=== PATIENT | female | born 1975 | race Caucasian/White ===

== ENCOUNTER 2017-11-12 18:31 | Emergency (ER) | payer SELFPAY ==
[2017-11-12 18:49] VITALS: BP 127/78; PULSE 124; RESP 16; TEMP 98.7; O2SAT 96
[2017-11-12] MEDS ORDERED: SODIUM CHLOR 0.9% 1000 ML INJ 1,000 ML IV SCH (19:16)
--- NOTE | 2017-11-12 19:22 | PD ---
HPI Chief Complaint: Medical Clearance Time Seen by Provider: 19:12 Travel History International Travel<30 days: No Contact w/Intl Traveler<30days: No Traveled to known affect area: No History of Present Illness HPI This is a 42-year-old female alcoholic who presents requesting help with alcohol detoxification. She reports that she has been a heavy drinker for the past 10 years. On average she is currently drinking approximately 1 pint of vodka a day, most recently drank 3 hours ago. She reports that yesterday she attempted to quit drinking and she was having withdrawal symptoms including anxiety, nausea. She therefore drink today but would like help with quitting alcohol use. Symptoms are moderate, aggravated by alcohol cessation, alleviated by drinking. She reports that 5 months ago she was seen at a detoxification center in [place]. She has no other complaints at this time. [facility] Past Medical History Medical History: Denies Significant Hx Social History Alcohol Use: Yes Tobacco Use: Yes Allergies-Medications (Allergen,Severity, Reaction): Coded Allergies: No Known Allergies (Unverified , 11/12/17) Reported Meds & Prescriptions Reported Meds & Active Scripts Active Chlordiazepoxide HCl 25 Mg Capsule 1 Tab PO QID Potassium Chloride ER (Potassium Chloride) 20 Meq Tab 20 Meq PO BID 7 Days Review of Systems Except as stated in HPI: all other systems reviewed are Neg Physical Exam Narrative GENERAL: Well-developed well-nourished female no acute distress currently eating a cheeseburger on examination. Tachycardic in triage. SKIN: Warm and dry. HEAD: Atraumatic. Normocephalic. EYES: Pupils equal and round. No scleral icterus. No injection or drainage. ENT: No nasal bleeding or discharge. Mucous membranes pink and moist. NECK: Trachea midline. No JVD. CARDIOVASCULAR: Regular rate and rhythm. No murmur appreciated. RESPIRATORY: No accessory muscle use. Clear to auscultation. Breath sounds equal bilaterally. GASTROINTESTINAL: Abdomen soft, non-tender, nondistended. Hepatic and splenic margins not palpable. MUSCULOSKELETAL: No obvious deformities. No clubbing. No cyanosis. No edema. NEUROLOGICAL: Awake and alert. No obvious cranial nerve deficits. Motor grossly within normal limits. Normal speech. No tremors. Data Data Last Documented VS Vital Signs Date Time Temp Pulse Resp B/P (MAP) Pulse Ox O2 Delivery O2 Flow Rate FiO2 11/12/17 18:49 98.7 124 16 127/78 (94) 96 Orders Orders Magnesium (Mg) (11/12/17 19:16) Electrocardiogram (11/12/17 ) Iv Access Insert/Monitor (11/12/17 19:16) Lorazepam Inj (Ativan Inj) (11/12/17 19:30) Comprehensive Metabolic Panel (11/12/17 19:16) Sodium Chlor 0.9% 1000 Ml Inj (Ns 1000 M (11/12/17 19:16) Potassium Chloride (Kcl) (11/12/17 20:45) Labs Laboratory Tests Test 11/12/17 20:00 Blood Urea Nitrogen 6 MG/DL Creatinine 0.70 MG/DL Random Glucose 176 MG/DL Total Protein 6.9 GM/DL Albumin 3.4 GM/DL Calcium Level 8.6 MG/DL Magnesium Level 2.0 MG/DL Alkaline Phosphatase 99 U/L Aspartate Amino Transf (AST/SGOT) 179 U/L Alanine Aminotransferase (ALT/SGPT) 102 U/L Total Bilirubin 0.3 MG/DL Sodium Level 140 MEQ/L Potassium Level 2.6 MEQ/L Chloride Level 101 MEQ/L Carbon Dioxide Level 22.2 MEQ/L Anion Gap 17 MEQ/L Estimat Glomerular Filtration Rate 92 ML/MIN MDM Medical Decision Making Medical Screen Exam Complete: Yes Emergency Medical Condition: Yes Medical Record Reviewed: Yes Differential Diagnosis Alcoholism, alcohol withdrawal, anxiety, electrolyte abnormality, dehydration Narrative Course Plan is for basic lab work, EKG, ECG monitoring pulse oximetry. She will be given IV fluids, Ativan. EKG reveals sinus rhythm with a rate of 99. Lab work reveals a potassium of 2.6. Initially an IV was ordered however the patient refused to keep the IV in place and it was removed prior to the lab work returning. I discussed with the patient that ideally should receive IV potassium chloride replacement however she is declining. She is tolerating oral hydration and food excellently, she ate a meal while she was here and she drank a full bottle of Gatorade. She will be given 60 mEq of oral potassium chloride and discharged with a prescription for oral potassium chloride as well as Librium. Recommended follow -up with a detoxification center. She is stable for discharge. Diagnosis Primary Impression: Hypokalemia Additional Impression: Alcoholism Referrals: [facility] Additional Instructions: Medication as prescribed. Follow-up in the alcohol detoxification center. Return for any emergent medical conditions. Med/Other Pt SpecificInfo: Prescription(s) given Scripts Chlordiazepoxide HCl (Chlordiazepoxide HCl) 25 Mg Capsule 1 TAB PO QID, #12 Prov: Eusebio Prieto MD 11/12/17 Potassium Chloride ER (Potassium Chloride ER) 20 Meq Tab 20 MEQ PO BID for Electrolyte Replacement for 7 Days, #14 TAB 0 Refills Prov: Eusebio Prieto MD 11/12/17 Disposition: 01 DISCHARGE HOME Condition: Stable Marlon Henriquez Nov 12, 2017 19:22
[2017-11-12] MEDS ORDERED: LORazepam 2 MG/ML VIAL IV PUSH ONE (19:30)
[2017-11-12 20:32] LABS: ALBUMIN 3.4 GM/DL (3.4-5.0); ALT (GPT) 102 U/L (10-53); AST (GOT) 179 U/L (15-37); BICARBONATE 22.2 MEQ/L (21.0-32.0); BLOOD UREA NITROGEN 6 MG/DL (7-18); CALCIUM 8.6 MG/DL (8.5-10.1); CHLORIDE 101 MEQ/L (98-107); GLOMERULAR FILTRATION RATE 92 ML/MIN (>89); GLUCOSE,RANDOM 176 MG/DL (74-106); SODIUM (NA) 140 MEQ/L (136-145)
[2017-11-12 20:37] LABS: ALKALINE PHOSPHATASE 99 U/L (45-117); TOTAL BILIRUBIN ADULT 0.3 MG/DL (0.2-1.0); TOTAL PROTEIN 6.9 GM/DL (6.4-8.2)
[2017-11-12] MEDS ORDERED: POTASSIUM CHLORIDE 20 MEQ CONTROLLED RELEASE TAB PO ONE (20:45)
[2017-11-12] MEDS ORDERED: POTA-163 PO (20:52)
[2017-11-12] MEDS ORDERED: CHLO25CA9 PO (20:52)
[2017-11-12] MEDS ORDERED: LORazepam 2 MG/ML VIAL IM ONE (21:00)
--- NOTE | 2017-11-13 19:10 | EKG ---
Date Performed: 11/12/2017 Time Performed: 19:50:41 PTAGE: 42 years EKG: Sinus rhythm NONSPECIFIC T-WAVE ABNORMALITY BORDERLINE ECG NO PREVIOUS TRACING DOCTOR: Odilia Barrera Interpretating Date/Time 11/13/2017 19:08:39
== END 2017-11-12 21:18 | disposition home or self-care (01) ==
LOC: NEPD 18:31
DX: E87.6 Hypokalemia (principal); F10.20 Alcohol dependence, uncomplicated; F41.9 Anxiety disorder, unspecified; R11.0 Nausea; R94.31 Abnormal electrocardiogram [ECG] [EKG]; Z72.0 Tobacco use
CPT/HCPCS: 80053; 83735; 93005; 96372; 99283; J2060